=== PATIENT | female | born 1990 | race Caucasian/White ===

== ENCOUNTER → 2016-09-19 | Outpatient (CLI) | payer OTHER | LOC: M LRY 15:47 | PROVIDERS: ATTEND Obstetrics & Gynecology | DX: Z32.01 Encounter for pregnancy test, result positive (principal) ==

== ENCOUNTER → 2016-09-21 | Outpatient (CLI) | payer OTHER | LOC: M LRY 15:54 | PROVIDERS: ATTEND Obstetrics & Gynecology | DX: Z32.01 Encounter for pregnancy test, result positive (principal) ==

== ENCOUNTER → 2016-10-13 | Outpatient (CLI) | payer OTHER ==
[2016-10-13 16:52] LABS: BASO % 0.2 % (0.0-1.0); EOS # 0.1 K/mm3 (0.0-0.50); EOS % 0.6 % (0.0-3.0); LARGE UNSTAINED CELL # 0.1 K/mm3 (0.0-0.4); LARGE UNSTAINED CELL % 0.9 % (0.0-4.0); LYMPH # 1.8 K/mm3 (1.5-6.5); LYMPH % 15.2 % (24.0-44.0); MEAN CORPUSCULAR HEMOGLOBIN 29.3 pg (27.0-33.0); MEAN CORPUSCULAR HGB CONC 33.3 g/dl (32.0-36.5); MEAN CORPUSCULAR VOLUME 88.1 fl (80.0-96.0); MONO # 0.6 K/mm3 (0.0-0.8); MONO % 5.5 % (0.0-5.0); NEUTROPHILS % 77.5 % (36.0-66.0); PLATELET COUNT, AUTOMATED 283 k/mm3 (150-450); WHITE BLOOD COUNT 11.6 K/mm3 (4.0-10.0)
[2016-10-16 08:50] LABS: HBsAg Prenatal NEGATIVE (NEGATIVE)
== END ==
LOC: M WUC 14:20
PROVIDERS: ATTEND Advanced Practice Midwife
DX: Z34.81 Encounter for supervision of other normal pregnancy, first trimester (principal)

== ENCOUNTER → 2016-12-15 | Outpatient (CLI) | payer OTHER ==
[~2016-12-15] MED LIST: ACET50TA PO; MACR100C43 PO; PRENTAB9 PO
--- NOTE | 2016-12-15 17:22 | REP ---
OB ULTRASOUND: Real-time sonographic evaluation of the gravid uterus performed. There is a single living intrauterine gestation. Estimated gestational age is 18 weeks 1 day based on LMP with EDC 05/17/2017. Today's measurements indicate appropriate growth. BPD 38 mm = 17 weeks 4 days, 30th percentile HC 138 mm = 17 weeks 1 day, 17th percentile AC 116 mm = 17 weeks 2 days, 30th percentile FL 23 mm = 17 weeks 0 days, 16th percentile HC/AC ratio 1.19, within normal range. Estimated weight 185 grams, 15th percentile. Cervix is closed and measures 5.1 cm in length. heart rate 145 beats per minute. SEEN/GROSSLY UNREMARKABLE Lateral ventricles yes Posterior fossa yes Upper lip yes Four-chamber heart no LVOT no RVOT yes Stomach yes Cord insertion yes Three vessel cord yes Kidneys yes Bladder yes Spine no position: Variable Placenta: Posterior and grade 0 with no previa or abruption. Amniotic fluid: Within normal limits. Signed by Sj Skinner MD 12/26/2016 08:37 A
== END ==
LOC: M RAD 15:37
PROVIDERS: ATTEND Obstetrics & Gynecology
DX: Z34.82 Encounter for supervision of other normal pregnancy, second trimester (principal); Z3A.18 18 weeks gestation of pregnancy

== ENCOUNTER → 2017-01-05 | Outpatient (CLI) | payer OTHER ==
--- NOTE | 2017-01-05 16:29 | REP ---
Obstetric ultrasound for anatomy follow-up: The prior study dated 12/15/2016 is unable to optimally demonstrate the four-chamber heart, left ventricular outflow tract or spine. The study today is for follow-up of these structures. There is a single intrauterine gestation in a breech presentation. There is movement and cardiac activity, the heart rate is 152 beats per minute. The placenta is posterior and low-lying. There is no evidence of placenta previa and the placenta is grade zero. Subjectively the amniotic fluid volume is normal. The cervix is 4.8 centimeters measured transabdominally and endovaginally. The maternal adnexa and cul-de-sac are unremarkable. By the ultrasound today the gestational age is 19-week 6 days with an KAREN of 05/26/2017. Gestational age by the first ultrasound is 20 weeks 2 days and by LMP 21 weeks 1 day. weight is 325 grams (0 pounds, 11 ounces). This is the 38th percentile for 20 weeks 2 days. On the study today the four-chamber view of the heart and the spine are adequately demonstrated and are unremarkable. We are again unable to adequately demonstrate the cardiac left ventricular outflow tract. The remainder of the anatomy previously was unremarkable. Followup study dedicated to left ventricular outflow tract might be considered. Otherwise, there are no anomalies. Signed by Sj Echeverria MD 01/05/2017 04:21 P
== END ==
LOC: M RAD 14:57
PROVIDERS: ATTEND Advanced Practice Midwife
DX: Z34.82 Encounter for supervision of other normal pregnancy, second trimester (principal)

== ENCOUNTER 2017-02-01 14:12 | Outpatient (CLI) | payer OTHER ==
[~2017-02-01] VITALS: Ht 162.6 cm; Wt 76.2 kg
[2017-02-01] MEDS ORDERED: ACET50TA PO (15:00)
[2017-02-01] MEDS ORDERED: PRENTAB9 PO (15:00)
--- NOTE | 2017-02-01 15:24 | IPNPDOC ---
Date Seen The patient was seen on 02/01/17. Progress Note SUBJECTIVE: Patient is a 26-year-old KAREN 05/17/17. Presents @ 25wks gestation with reports of R sided abdominal pain since this am. Denies bleeding or LOF. Fetus active. OBJECTIVE PHYSICAL EXAMINATION: VITAL SIGNS: Please see below. GENERAL: NAD. Talkative. ABDOMINAL:Abdomen soft, gravid. R lower quadrant tender to deep palpation, radiates along R abdomen. Ligament tense and palpable. FH 150, Cat I tracing. Rare uterine irritability. EXTREMITIES: WNL Vital Signs Date Time Temp Pulse Resp B/P (MAP) Pulse Ox O2 Delivery O2 Flow Rate FiO2 02/01/17 14:00 18 ASSESSMENT AND PLAN: This is a 26-year-old @ 25wks gestation with round ligament pain. Reassuring maternal/ status Discharge home. Routine care and precautions. Keep next appt NV VS, I&O, 24H, Fishbone Vital Signs/I&O Vital Signs Date Time Temp Pulse Resp B/P (MAP) Pulse Ox O2 Delivery O2 Flow Rate FiO2 02/01/17 14:00 18 Laboratory Data 24H LABS Laboratory Tests 2 02/01/17 14:50: Microbiology Microbiology 02/01/17 Urine Culture, Received Pending Tory Saleem CNM Feb 01, 2017 15:24
[2017-02-01] MEDS ORDERED: MACR100C43 PO (15:44)
[2017-02-01] MEDS ORDERED: NITROFURANTOIN (MACROBID) 100 MG CAP PO ONE (15:45)
== END 2017-02-01 16:05 | disposition home or self-care (01) ==
LOC: M LDO 14:12
PROVIDERS: ATTEND Advanced Practice Midwife
DX: O26.892 Other specified pregnancy related conditions, second trimester (principal); O62.0 Primary inadequate contractions; R10.2 Pelvic and perineal pain; Z3A.25 25 weeks gestation of pregnancy

== ENCOUNTER → 2017-02-01 | Outpatient (CLI) | payer OTHER ==
--- NOTE | 2017-02-01 17:16 | REP ---
Clinical: Anatomical re-evaluation. Comparison: Cephalic . Findings: Examination demonstrates a single live intrauterine in posteriorly presentation. motion is identified by technologist. Placenta is noted zero and grade 2.3 cm without evidence for placenta previa or abruption. Amniotic fluid volume is normal. Cervix measures 3.9 cm in length and appears closed. No evidence for nuchal cord. Gestational age by LMP 25 weeks 0 days with KAREN 05/17/2017 . Gestational age by current measurements 24 weeks 0 days with KAREN 05/24/2017. FHR equals 155 beats per minute. Estimated weight 671 grams ( 23rd percentile). Anatomical assessment demonstrates normal structures including cranium, cavum, cerebellum/posterior fossa, facial features, lungs, four-chamber heart/ventricular outflow tracts, diaphragm, stomach, cord insertion/three-vessel cord, kidneys/bladder, spine, and extremities. Impression: 1. Single live intrauterine in cephalic presentation demonstrating appropriate interval growth. 2. The placenta is now identified approximately 2.3 cm from the closed internal os. 3. In conjunction with prior examination anatomical assessment is complete and normal. Signed by Russell Madden MD 02/01/2017 05:07 P
== END ==
LOC: M RAD 16:25
PROVIDERS: ATTEND Specialist
DX: Z34.82 Encounter for supervision of other normal pregnancy, second trimester (principal)

== ENCOUNTER → 2017-02-15 | Outpatient (CLI) | payer OTHER ==
[2017-02-15 20:51] LABS: BASO # 0.1 10^3/uL (0.0-0.2); BASO % 0.3 % (0.0-1.0); EOS # 0.2 10^3/uL (0.0-0.50); EOS % 1.2 % (0.0-3.0); IMMATURE GRANULOCYTE % 1.7 % (0-0); LYMPH # 2.6 10^3/uL (1.5-6.5); LYMPH % 14.7 % (24.0-44.0); MEAN CORPUSCULAR HEMOGLOBIN 28.9 pg (27.0-33.0); MEAN CORPUSCULAR HGB CONC 32.5 g/dl (32.0-36.5); MEAN CORPUSCULAR VOLUME 88.9 fl (80.0-96.0); MONO # 1.2 10^3/uL (0.0-0.8); MONO % 6.8 % (0.0-5.0); NEUTROPHILS # 13.4 10^3/uL (1.8-7.7); NEUTROPHILS % 75.3 % (36.0-66.0); PLATELET COUNT, AUTOMATED 343 10^3/uL (150-450); RED CELL DISTRIBUTION WIDTH 12.6 % (11.5-14.5)
[2017-02-15 21:02] LABS: ADD MORPHOLOGY? NO
[2017-02-19 10:19] LABS: WHITE BLOOD COUNT 17.9 10^3/uL (4.0-10.0)
== END ==
LOC: M LRY 15:58
PROVIDERS: ATTEND Specialist
DX: Z34.82 Encounter for supervision of other normal pregnancy, second trimester (principal)

== ENCOUNTER → 2017-04-23 | Outpatient (REF) | payer OTHER | LOC: M LAB REF 17:16 | PROVIDERS: ATTEND Obstetrics & Gynecology | DX: Z34.83 Encounter for supervision of other normal pregnancy, third trimester (principal); Z36.9 Encounter for antenatal screening, unspecified ==

== ENCOUNTER 2017-05-18 12:10 | Inpatient (IN) | payer OTHER ==
[2017-05-18] MEDS: LACTATED RINGER'S 1000 ML IV (13:10)
[2017-05-18 13:18] LABS: HEMOGLOBIN 11.5 g/dl (12.0-16.0); MEAN CORPUSCULAR HEMOGLOBIN 27.5 pg (27.0-33.0); MEAN CORPUSCULAR HGB CONC 32.9 g/dl (32.0-36.5); MEAN CORPUSCULAR VOLUME 83.7 fl (80.0-96.0); PLATELET COUNT, AUTOMATED 353 10^3/uL (150-450); RED BLOOD COUNT 4.18 10^6/uL (4.00-5.40); RED CELL DISTRIBUTION WIDTH 13.8 % (11.5-14.5); WHITE BLOOD COUNT 14.8 10^3/uL (4.0-10.0)
[2017-05-18] MEDS: LR 1,000 ML IV (13:34)
[2017-05-18] MEDS ORDERED: OXYTOCIN 30 UNITS IN 0.9% NaCl 500ML IV BAG (J2590) As Ordered (13:39)
[2017-05-18 13:42] LABS: AMPHETAMINES URINE REFLEX NEGATIVE (NEGATIVE); BARBITURATES URINE REFLEX NEGATIVE (NEGATIVE); BENZODIAZEPINES URINE REFLEX NEGATIVE (NEGATIVE); CANNABINOIDS URINE REFLEX NEGATIVE (NEGATIVE); COCAINE METABOLITE URINE REFLE NEGATIVE (NEGATIVE); METHADONE URINE REFLEX NEGATIVE (NEGATIVE); OPIATES URINE REFLEX NEGATIVE (NEGATIVE); PHENCYCLIDINE URINE REFLEX NEGATIVE (NEGATIVE)
[2017-05-18] MEDS ORDERED: FENTANYL 2MCG/ML ROPIVACAINE 0.2% IN 0.9% NACL 200ML IVBAG As Ordered (14:00)
[2017-05-18] MEDS ORDERED: ePHEDrine SULFATE 25 MG/5 ML(5MG/ML) SYRINGE IV (15:15)
[2017-05-18] MEDS ORDERED: EPIDURAL COMMENT XX (15:15)
[2017-05-18] MEDS ORDERED: EPIDURAL/PCA KEYS XX (15:15)
[2017-05-18] MEDS ORDERED: FENTANYL/ROPIVACAINE/NACL BAG 200 ML EPIDURAL (15:15)
[2017-05-18] MEDS ORDERED: REFRIGERATOR IV KEYS XX (15:15)
[2017-05-18] MEDS ORDERED: LACTATED RINGER'S 1000 ML IV (15:15)
[2017-05-18] MEDS ORDERED: diphenhydrAMINE INJ 50MG/ML VIAL (J1200) IV (15:15)
[2017-05-18] MEDS ORDERED: ONDANSETRON 4MG/2ML VIAL (J2405) IV (15:15)
[2017-05-18] MEDS ORDERED: NALOXONE INJ 0.4 MG/1 ML VIAL (J2310) IV (15:15)
[2017-05-18] MEDS: OXYTOCIN DRIP 30 UNITS in APPROPRIATE DILUENT 1 EA IV ×2 (16:58→19:15)
[2017-05-18 18:56] LABS: CORD GAS HCO3 A 20.9 MEQ/L; CORD GAS O2 SAT A 68.6 %; CORD GAS PCO2 A 37.7 mmHg; CORD GAS PH A 7.362 UNITS; CORD GAS PO2 A 28.4 mmHg; CORD GAS SBC A 20.5 MEQ/L; CORD GAS TCO2 A 22.1 MEQ/L
[2017-05-18 19:00] LABS: CORD GAS HCO3 V 21.3 MEQ/L; CORD GAS O2 SAT V 78.3 %; CORD GAS PCO2 V 39.5 mmHg; CORD GAS PH V 7.349 UNITS; CORD GAS PO2 V 34.8 mmHg; CORD GAS SBC V 20.8 MEQ/L; CORD GAS TCO2 V 22.5 MEQ/L
[2017-05-18] MEDS ORDERED: RHOGAM 300 MCG (1500 IU) INJ (J2790) IM (19:15)
[2017-05-18] MEDS ORDERED: DIBUCAINE 1% OINTMENT 30GM TOP (19:15)
[2017-05-18] MEDS ORDERED: METHYLERGONOVINE MALEATE 0.2 MG TAB PO (19:15)
[2017-05-18] MEDS ORDERED: ACETAMINOPHEN 500 MG TAB PO (19:15)
[2017-05-18] MEDS ORDERED: MEASLES,MUMPS,RUBELLA VACCINE INJ (MMR-II) (90707) SC (19:15)
[2017-05-18] MEDS: DOCUSATE SODIUM 100 MG CAP PO (23:15)
[2017-05-19] MEDS ORDERED: MAGNESIUM *L&D* 4 GM/100 ML BAG (40MG/ML) (J3475) As Ordered (03:17)
[2017-05-19] MEDS: IBUPROFEN 800 MG TAB PO (05:11)
[2017-05-19] MEDS: PRENATAL VITAMINS CHEWABLE TABLET PO (07:53)
[2017-05-20] MEDS: PRENATAL VITAMINS CHEWABLE TABLET PO (09:06)
== END 2017-05-20 15:20 | disposition home or self-care (01) | DRG 775 ==
LOC: M LDO 12:10 → M LDI 12:16 → M OBS 20:55
PROVIDERS: Advanced Practice Midwife
PROC: 10E0XZZ Delivery of Products of Conception, External Approach (ICD-10-PCS; principal; 2017-05-18)
PROC: 0KQM0ZZ Repair Perineum Muscle, Open Approach (ICD-10-PCS; 2017-05-18)
DX: O48.0 Post-term pregnancy (principal); Z37.0 Single live birth; Z3A.40 40 weeks gestation of pregnancy; O76 Abnormality in fetal heart rate and rhythm complicating labor and delivery; O70.1 Second degree perineal laceration during delivery; O42.02 Full-term premature rupture of membranes, onset of labor within 24 hours of rupture

== ENCOUNTER → 2017-09-24 | Outpatient (REF) | payer OTHER | LOC: M SFHCLERA 11:53 | DX: J35.8 Other chronic diseases of tonsils and adenoids (principal) ==

== ENCOUNTER → 2019-02-13 | Outpatient (CLI) | payer OTHER ==
[~2019-02-13] MED LIST changes: -ACET50TA PO; +IBUP-1114 PO; +MAPA500T2 PO; +TYLE-43 PO
[2019-02-13 17:52] LABS: BASO % 0.3 % (0.0-1.0); EOS # 0.1 10^3/uL (0.0-0.5); HEMATOCRIT 34.2 % (36.0-47.0); HEMOGLOBIN 11.5 g/dl (12.0-15.5); LYMPH # 3.1 10^3/uL (1.5-5.0); LYMPH % 29.2 % (24.0-44.0); MEAN CORPUSCULAR HEMOGLOBIN 28.5 pg (27.0-33.0); MEAN CORPUSCULAR HGB CONC 33.6 g/dl (32.0-36.5); MEAN CORPUSCULAR VOLUME 84.7 fl (80.0-96.0); MONO # 0.9 10^3/uL (0.0-0.8); MONO % 8.2 % (0.0-5.0); NEUTROPHILS # 6.4 10^3/uL (1.5-8.5); NEUTROPHILS % 60.9 % (36.0-66.0); PLATELET COUNT, AUTOMATED 279 10^3/uL (150-450); RED BLOOD COUNT 4.04 10^6/uL (4.00-5.40); WHITE BLOOD COUNT 10.5 10^3/uL (4.0-10.0)
[2019-02-13 21:04] LABS: CHLAMYDIA DNA AMPLIFICATION NEGATIVE (NEGATIVE); GC DNA AMPLIFICATION NEGATIVE (NEGATIVE)
[2019-02-14 11:42] LABS: HEPATITIS C VIRUS ABY INDEX 0.1 INDEX (<0.8); HIV 1&2 SCREEN CENTAUR NEGATIVE (NEGATIVE); RUBELLA IgG QUALITATIVE IMMUNE (IMMUNE)
== END ==
LOC: M SMT 15:27
PROVIDERS: ATTEND Advanced Practice Midwife
DX: Z3A.10 10 weeks gestation of pregnancy (principal); Z34.81 Encounter for supervision of other normal pregnancy, first trimester

== ENCOUNTER → 2019-03-28 | Outpatient (REF) | payer OTHER | LOC: M LAB REF 13:21 | PROVIDERS: ATTEND Advanced Practice Midwife | DX: Z34.82 Encounter for supervision of other normal pregnancy, second trimester (principal); Z3A.00 Weeks of gestation of pregnancy not specified ==

== ENCOUNTER → 2019-07-28 | Outpatient (REF) | payer OTHER | LOC: M PLALAB 15:41 | PROVIDERS: ATTEND Obstetrics & Gynecology | DX: Z34.93 Encounter for supervision of normal pregnancy, unspecified, third trimester (principal) ==

== ENCOUNTER 2019-08-20 11:45 | Inpatient (IN) | payer OTHER ==
[2019-08-20] VITALS (28 sets, daily range): BP systolic 92–120; BP diastolic 50–74
[~2019-08-20] VITALS: Ht 162.6 cm; Wt 87.9 kg
[2019-08-20] MEDS ORDERED: miSOPROStol 50 MCG 1/2 TAB (S0191) PO ONE (12:00)
[2019-08-20 12:47] LABS: HEMATOCRIT 33.4 % (36.0-47.0); HEMOGLOBIN 10.8 g/dl (12.0-15.5); MEAN CORPUSCULAR HEMOGLOBIN 26.9 pg (27.0-33.0); MEAN CORPUSCULAR HGB CONC 32.3 g/dl (32.0-36.5); MEAN CORPUSCULAR VOLUME 83.3 fl (80.0-96.0); PLATELET COUNT, AUTOMATED 219 10^3/uL (150-450); RED BLOOD COUNT 4.01 10^6/uL (4.00-5.40); WHITE BLOOD COUNT 12.2 10^3/uL (4.0-10.0)
--- NOTE | 2019-08-20 13:18 | HPE ---
DATE OF ADMISSION: 08/20/2019 Kimberly is a 28-year-old 2 para 1-0-0-1 at 39-6/7 weeks' gestation, estimated date of confinement (EDC) of 08/21/2019 based on last menstrual period and confirmed by first-trimester ultrasound. She presents to labor and delivery today for induction of labor due to social reasons. She denies any regular painful contractions, vaginal bleeding, and leakage of fluid. The fetus has been active. care was initiated [facility] in the first trimester. Her course has been uncomplicated. OBSTETRIC HISTORY: April 2017, 40-week gestation, 7 pound 7 ounce female, spontaneous vaginal delivery. OBSTETRIC LABORATORIES: A+, antibody screen negative, rubella immune, [facility] ([facility]) nonreactive, hepatitis B surface antigen negative, HIV negative, hepatitis C antibody nonreactive. Gonorrhea and chlamydia negative. She did decline genetic serum screening laboratories. Her gestational diabetic screening was normal at 117, and her group B streptococcus (GBS) is negative. PAST MEDICAL HISTORY: A history of kidney stones, abnormal Pap smear, and childhood varicella. SURGERIES: None. FAMILY HISTORY: High blood pressure, skin cancer, breast cancer, prostate cancer, and high cholesterol. SOCIAL HISTORY: The patient is . She is a nonsmoker. She denies current alcohol and drug use. There is no history of any sexually-transmitted infections, and she denies history of abuse: physical, sexual, and emotional. ALLERGIES: No known drug allergies. CURRENT MEDICATIONS: - vitamins OBJECTIVE: Temperature 97.9, pulse 86, blood pressure (BP) 106/58. She is alert and oriented times three. She is smiling and talkative. No apparent distress. heart rate is 140 with moderate variability, positive accelerations, no decelerations. Contractions are 2-5 minutes. They palpate mild. Sterile vaginal examination: 2 cm dilated, 80% effaced, minus two station, very posterior, soft, and positive show. Her abdomen is gravid, cephalic presentation. Estimated weight 7-1/2 pounds. ASSESSMENT: Intrauterine at 39-6/7 weeks. heart rate category one. PLAN: Admit the patient to labor and delivery. Routine laboratories. Out of bed ad eliecer. Regular diet at this time. Saline lock for intravenous (IV) access. Misoprostol 50 mcg by mouth times one dose, then will start IV Pitocin for labor induction. The patient is desiring an epidural when she is in active labor. I will consider assisted rupture of membranes to augment her labor. I did review risks, benefits, and alternatives to induction of labor. Her and her 's questions have been answered. She has been verbally consented for emergency surgery and blood products if necessary. I do anticipate cervical ripening labor and a spontaneous vaginal delivery.
[2019-08-20] MEDS ORDERED: LR 1,000 ML IV SCH (16:46)
[2019-08-20] MEDS ORDERED: OXYTOCIN 30 UNITS IN 0.9% NaCl 500ML IV BAG (J2590) As Ordered ONE (16:51)
[2019-08-20] MEDS ORDERED: OXYTOCIN DRIP 30 UNITS in IV 1 EA IV SCH ×2 (17:00→20:14)
[2019-08-20] MEDS ORDERED: FENTANYL 2MCG/ML ROPIVACAINE 0.2% IN 0.9% NACL 100ML IVBAG As Ordered ONE (18:05)
[2019-08-20] MEDS ORDERED: ePHEDrine SULFATE 25 MG/5 ML(5MG/ML) SYRINGE IV PRN (18:30)
[2019-08-20] MEDS ORDERED: ONDANSETRON 4MG/2ML VIAL (J2405) IV PRN (18:30)
[2019-08-20] MEDS ORDERED: FENTANYL/ROPIVACAINE/NACL BAG 100 ML EPIDURAL SCH (18:30)
[2019-08-20] MEDS ORDERED: diphenhydrAMINE 50MG/ML VIAL (J1200) IV PRN (18:30)
[2019-08-20] MEDS ORDERED: NALOXONE INJ 0.4 MG/1 ML VIAL (J2310) IV PRN (18:30)
[2019-08-20] MEDS ORDERED: REFRIGERATOR IV KEYS XX PRN (18:30)
[2019-08-20] MEDS ORDERED: EPIDURAL COMMENT XX SCH (18:30)
[2019-08-20] MEDS ORDERED: EPIDURAL/PCA KEYS XX PRN (18:30)
[2019-08-20] MEDS ORDERED: LACTATED RINGER'S 1000 ML IV PRN (18:30)
[2019-08-20] MEDS ORDERED: RHOGAM 300 MCG (1500 IU) INJ (J2790) IM SCH (20:15)
[2019-08-20] MEDS ORDERED: IBUPROFEN 800 MG TAB PO PRN (20:15)
[2019-08-20] MEDS ORDERED: ACETAMINOPHEN TAB 650MG DOSE (2X325MG) PO PRN (20:15)
[2019-08-20] MEDS ORDERED: IBUPROFEN 600 MG TAB PO PRN (20:15)
[2019-08-20] MEDS ORDERED: MEASLES,MUMPS,RUBELLA VACCINE INJ (MMR-II) (90707) SC SCH (20:15)
[2019-08-20] MEDS ORDERED: METHYLERGONOVINE MALEATE 0.2 MG TAB PO PRN (20:15)
[2019-08-20] MEDS ORDERED: DIBUCAINE 1% OINTMENT 30GM TOP PRN (20:15)
[2019-08-20] MEDS ORDERED: ACETAMINOPHEN 500 MG TAB PO PRN (20:15)
[2019-08-20] MEDS ORDERED: DOCUSATE SODIUM 100 MG CAP PO PRN (20:15)
--- NOTE | 2019-08-20 20:38 | DN ---
DATE: 08/20/2019 Kimberly is a 28-year-old 2, para 2-0-0-2 now. She was admitted to labor and delivery for induction of labor. One dose of misoprostol and intravenous (IV) Pitocin was used, and labor did ensue. She utilized an epidural for her labor coping. She reached complete dilation at 1939. She pushed to a normal spontaneous vaginal delivery of a live female infant in right occiput anterior (AMILCAR) position with restitution to right occiput transverse (ROT) position at 1945. There was no nuchal cord. The shoulders delivered with gentle downward traction, and the corpus immediately followed. The female was laid on the maternal abdomen crying and active. Her mouth and nares were bulb suctioned. The cord was clamped times two once pulsations ceased and cut by the father of the baby under my direction. Cord blood was obtained. Spontaneous expulsion of an intact placenta with 3-vessel cord by Valle mechanism was at 1949. Uterine hemostasis achieved with IV Pitocin rapid infusion and uterine fundal massage. Estimated blood loss 350 mL. Perineum and vagina inspected and noted have a first-degree midline laceration. Laceration repaired with 3-0 Rapide in the usual fashion. [place] female weighed 7 pounds 8 ounces, 3410 grams, scores 9 and 9. Mother is going to breastfeed her daughter, and the family have named her Mary. At the close of delivery, lap counts, needle counts, and instrument counts were correct and verified.
[2019-08-21 06:00] VITALS: BP 102/58
[2019-08-21] MEDS: PRENATAL VITAMINS CHEWABLE TABLET PO SCH (08:42)
[2019-08-21 18:18] VITALS: BP 102/56
[2019-08-22 06:20] VITALS: BP 108/55
[2019-08-22] MEDS ORDERED: ACET-683 PO (07:05)
[2019-08-22] MEDS ORDERED: IBUP80TA PO (07:05)
[2019-08-22] MEDS: PRENATAL VITAMINS CHEWABLE TABLET PO SCH (07:48)
== END 2019-08-22 12:15 | disposition home or self-care (01) | DRG 807 ==
LOC: M LDI 11:45 → M OBS 22:01
PROVIDERS: ADMIT Advanced Practice Midwife; ATTEND Advanced Practice Midwife
PROC: 10E0XZZ Delivery of Products of Conception, External Approach (ICD-10-PCS; principal; 2019-08-20)
PROC: 0HQ9XZZ Repair Perineum Skin, External Approach (ICD-10-PCS; 2019-08-20)
PROC: 3E0P7GC Introduction of Other Therapeutic Substance into Female Reproductive, Via Natural or Artificial Opening (ICD-10-PCS; 2019-08-20)
DX: O70.0 First degree perineal laceration during delivery (principal); Z37.0 Single live birth; Z3A.39 39 weeks gestation of pregnancy

== ENCOUNTER → 2024-07-07 | Outpatient (CLI) | payer OTHER ==
[~2024-07-07] MED LIST changes: +ACET-683 PO; +IBUP80TA PO
== END ==
LOC: M WUC 08:35
PROVIDERS: ATTEND Nurse Practitioner Family
DX: R05.9 Cough, unspecified (principal)

== ENCOUNTER → 2025-03-13 | Outpatient (CLI) | payer OTHER ==
[2025-03-13 13:40] LABS: BASO # 0.1 10^3/uL (0.0-0.2); BASO % 0.5 % (0.0-1.0); EOS # 0.1 10^3/uL (0.0-0.5); EOS % 1.3 % (0.0-3.0); LYMPH # 2.4 10^3/uL (1.5-5.0); LYMPH % 25.9 % (24.0-44.0); MONO # 0.5 10^3/uL (0.0-0.8); MONO % 5.6 % (2.0-8.0); NEUTROPHILS # 6.1 10^3/uL (1.5-8.5); NEUTROPHILS % 66.5 % (36.0-66.0); PLATELET COUNT, AUTOMATED 374 10^3/uL (150-450)
[2025-03-13 13:44] LABS: ALT/SGPT 16 U/L (7.0-40); AST/SGOT 15 U/L (<34); CALCIUM LEVEL 9.6 MG/DL (8.5-10.1); CARBON DIOXIDE LEVEL 26 MMOL/L (20-31); CHLORIDE LEVEL 105 MMOL/L (98-107); CREATININE FOR GFR 0.80 MG/DL (0.55-1.30); GLOMERULAR FILTRATION RATE > 90.0 (>60); MAGNESIUM LEVEL 2.0 MG/DL (1.8-2.4); POTASSIUM SERUM 4.1 MMOL/L (3.5-5.1); SODIUM LEVEL 140 MMOL/L (136-145)
[2025-03-13 13:45] LABS: THYROXINE (T4) 10.5 UG/DL (4.5-10.9)
[2025-03-13 13:46] LABS: TOTAL 25(OH) VITAMIN D 27.4 NG/ML (20.0-100.0)
[2025-03-13 13:47] LABS: FREE T4 1.22 NG/DL (0.89-1.76)
[2025-03-13 13:49] LABS: TOTAL T3 131.7 NG/DL (60.0-181.0)
[2025-03-13 13:50] LABS: ESTIMATED AVERAGE GLUCOSE 105.0 MG/DL (60-110)
== END ==
LOC: M WUC 09:24
PROVIDERS: ATTEND Nurse Practitioner Psychiatric/Mental Health
DX: F41.1 Generalized anxiety disorder (principal)